=== PATIENT | female | born 1975 | race Hispanic/Latino ===

== ENCOUNTER → 2022-06-16 13:49 | Outpatient (CLI) | payer OTHER, SELFPAY ==
--- NOTE | ~2022-06-16 | MMUS_ITS ---
EXAMINATION: MM diagnostic mani BI w stacy, US breast BI complete HISTORY: Bilateral breast lumps and pain TECHNIQUE: ML, MLO and CC 3-D tomosynthesis images of both breasts were performed and synthetic 2-D i mages were generated. CAD analysis was submitted and interpreted. High resolution bilateral complete breast ultrasound including all 4 quadrants and subareolar areas was performed. COMPARISON: 02/18/2018 bilateral complete breast ultrasound examination 02/07/2018 bilateral screening mammogram BREAST PARENCHYMAL COMPOSITION: The breasts are extremely dense, which lowers the sensitivity of mamm ography. FINDINGS: MAMMOGRAPHIC FINDINGS: There is suggestion of bilateral breast masses, partially obscured by the dense fibroglandular stroma . There are numerous benign calcifications scattered throughout the fibroglandular stroma of both breas ts. No malignant calcification is evident. No architectural distortion, skin thickening or retraction is detected. ULTRASOUND: Numerous bilateral breast cysts are identified in both breasts, measuring up to 3.9 cm on the right a nd 3.2 cm on the left. No suspicious mass or shadowing of either breast is detected. IMPRESSION: 1. Multiple bilateral benign breast cysts. No mammographic evidence of malignancy 2. Routine mammographic screening is recommended BI-RADS Category 2: Benign finding(s). Reviewed, dictated and finalized at location A. IMPRESSION: 1. Multiple bilateral benign breast cysts. No mammographic evidence of malignan cy 2. Routine mammographic screening is recommended BI-RADS Category 2: Benign finding(s).
== END ==
PROVIDERS: PCP Nurse Practitioner; Visit Provider Nurse Practitioner
DX: N60.11 Diffuse cystic mastopathy of right breast (principal); N60.12 Diffuse cystic mastopathy of left breast
CPT/HCPCS: 76641; 77062; 77066; G0279